=== PATIENT | female | born 1975 ===

== ENCOUNTER 2017-03-08 06:18 | Emergency (ER) | payer OTHER ==
[2017-03-08 06:18] VITALS: BMI 27.6
[2017-03-08 06:32] VITALS: BP 101/58; PULSE 65; RESP 16; TEMP 98.6; O2SAT 98
--- NOTE | 2017-03-08 07:15 | ED PDOC ---
HPI: Back Time Seen by Provider: 03/08/17 07:03 Chief Complaint (Nursing): Back Pain Chief Complaint (Provider): Back pain and vaginal bleeding History Per: Patient History/Exam Limitations: no limitations Onset/Duration Of Symptoms: Days (x 2 weeks) Current Symptoms Are (Timing): Still Present Additional Complaint(s): Angela is a 41-year-old female with no past medical history, who presents to the ED complaining of low back pain and abdominal cramping associated with vaginal bleeding, intermittently for 2 weeks. Home tests have been positive. LMP was January 22. PMD: Unknown Past Medical History Reviewed: Historical Data, Nursing Documentation, Vital Signs Vital Signs: Last Vital Signs Temp 98.6 F 03/08/17 06:29 Pulse 65 03/08/17 06:29 Resp 16 03/08/17 06:29 BP 101/58 L 03/08/17 06:29 Pulse Ox 98 03/08/17 06:29 - Medical History PMH: No Chronic Diseases - Surgical History Surgical History: - Family History Family History: States: Unknown Family Hx - Social History Current smoker - smoking cessation education provided: No Alcohol: None Drugs: Denies - Allergies Allergies/Adverse Reactions: Allergies Allergy/AdvReac Type Severity Reaction Status Date / Time No Known Allergies Allergy Verified 02/25/13 14:10 Review of Systems ROS Statement: Except As Marked, All Systems Reviewed And Found Negative Gastrointestinal: Positive for: Abdominal Pain (cramping) Genitourinary Female: Positive for: Vaginal Bleeding Musculoskeletal: Positive for: Back Pain (low) Physical Exam - Reviewed Nursing Documentation Reviewed: Yes Vital Signs Reviewed: Yes - Physical Exam Appears: Positive for: Non-toxic, No Acute Distress Head Exam: Positive for: ATRAUMATIC, NORMAL INSPECTION, NORMOCEPHALIC Skin: Positive for: Normal Color, Warm, Dry Eye Exam: Positive for: EOMI, Normal appearance, PERRL Neck: Positive for: Normal, Painless ROM, Supple Cardiovascular/Chest: Positive for: Regular Rate, Rhythm. Negative for: Murmur Respiratory: Positive for: Normal Breath Sounds. Negative for: Accessory Muscle Use, Respiratory Distress Gastrointestinal/Abdominal: Positive for: Normal Exam, Soft. Negative for: Tenderness Pelvic Exam: Positive for: Blood (Scant vaginal bleeding). Negative for: Tender Adnexa, Other (adnexal masses) Back: Positive for: Normal Inspection Extremity: Positive for: Normal ROM. Negative for: Pedal Edema, Deformity Neurologic/Psych: Positive for: Alert, Oriented - Laboratory Results Result Diagrams: 03/08/17 07:22 03/08/17 07:22 - ECG O2 Sat by Pulse Oximetry: 98 (RA) Pulse Ox Interpretation: Normal Medical Decision Making Medical Decision Making: Time: 07:09 Initial Plan: --CMP --Beta-HCG --CBC --ED urine test --ED urine dipstick --Blood type and screen --Pending US OB limited and OB Transvaginal Scribe Attestation: Documented by Tamera Car, acting as a scribe for Bradford Mcclure MD Provider Scribe Attestation: All medical record entries made by the Scribe were at my direction and personally dictated by me. I have reviewed the chart and agree that the record accurately reflects my personal performance of the history, physical exam, medical decision making, and the department course for this patient. I have also personally directed, reviewed, and agree with the discharge instructions and disposition. Disposition - Clinical Impression Clinical Impression: Threatened miscarriage - Patient ED Disposition Is Patient to be Admitted: No Counseled Patient/Family Regarding: Studies Performed, Diagnosis, Need For Followup, Rx Given - Disposition [facility] Disposition: Routine/Home Disposition Time: 11:41 Condition: FAIR Instructions: Threatened Miscarriage (ED) Forms: [employer] (Occitan) Print Language: TOGOLESE
[2017-03-08 07:32] LABS: BASO % 0.4 % (0.0-2.0); EOS # 0.1 K/uL (0.0-0.7); EOS % 1.3 % (0.0-4.0); HEMOGLOBIN 12.5 g/dL (12.0-16.0); LYMPH # 2.1 K/uL (1.0-4.3); LYMPH % 26.6 % (20.0-40.0); MEAN CELL VOLUME 88.9 fl (81.0-99.0); MEAN CORPUSCULAR HEMOGLOBIN 29.8 pg (27.0-31.0); MEAN CORPUSCULAR HGB CONC 33.5 g/dL (33.0-37.0); MEAN PLATELET VOLUME 9.3 fl (7.2-11.7); MONO # 0.8 K/uL (0.0-0.8); MONO % 10.1 % (0.0-10.0); NEUT # 4.9 K/uL (1.8-7.0); NEUT % 61.6 % (50.0-75.0); NRBC % 0.1 % (0.0-0.0); RBC 4.2 Mil/uL (3.80-5.20); RED CELL DISTRIBUTION WIDTH 13.8 % (11.5-14.5); WHITE BLOOD COUNT 7.9 K/uL (4.8-10.8)
[2017-03-08 07:40] LABS: ALB/GLOB RATIO 1.3 (1.0-2.1); ALT/SGPT 99 U/L (9-52); AST/SGOT 54 U/L (14-36); BLOOD UREA NITROGEN 10 mg/dl (7-17); CALCIUM 8.7 mg/dL (8.4-10.2); GFR AFRICAN-AMERICAN > 60; GFR NON-AFRICAN AMERICAN > 60
--- NOTE | 2017-03-08 11:42 | US ---
PROCEDURE: HISTORY: r/o ectopic COMPARISON: TECHNIQUE: FINDINGS: Intrauterine gestational sac measuring 1.8 cm corresponding to 6 weeks 2 days gestational age. pole and yolk sac identified. heart motion at 118 beats per minute. Heterogeneous endocervical canal. Left ovary not visualized. Right ovary contains 1.8 centimeter cyst IMPRESSION: As above.
== END 2017-03-08 11:55 | disposition home or self-care (01) ==
LOC: H.ER 06:18
DX: O20.0 Threatened abortion (principal); Z3A.01 Less than 8 weeks gestation of pregnancy

== ENCOUNTER 2017-10-19 06:48 | Inpatient (IN) | payer MEDICAID, SELFPAY ==
[2017-10-19] MEDS: Lactated Ringer's 1,000 ML IV SCH ×2 (07:00→08:00)
[2017-10-19 07:01] VITALS: BMI 28.9
[2017-10-19] MEDS ORDERED: Lactated Ringer's 1,000 ML IV SCH ×2 (07:15→22:15)
[2017-10-19] MEDS ORDERED: ceFAZolin IV 2 gm in Dextrose 2 GM/50 ML BAG IVPB ONE (07:30)
[2017-10-19] MEDS: Oxytocin 30 units/LR 500ML 30 U/500 ML BAG IV SCH ×9 (07:30→12:15)
[2017-10-19 07:33] LABS: BASO % 0.3 % (0.0-2.0); EOS # 0.1 K/uL (0.0-0.7); EOS % 1.1 % (0.0-4.0); HEMOGLOBIN 12.1 g/dL (12.0-16.0); LYMPH # 1.9 K/uL (1.0-4.3); LYMPH % 25.4 % (20.0-40.0); MEAN CELL VOLUME 86.5 fl (81.0-99.0); MEAN CORPUSCULAR HEMOGLOBIN 28.6 pg (27.0-31.0); MEAN CORPUSCULAR HGB CONC 33.1 g/dL (33.0-37.0); MONO # 0.8 K/uL (0.0-0.8); MONO % 10.2 % (0.0-10.0); NEUT # 4.8 K/uL (1.8-7.0); RBC 4.23 Mil/uL (3.80-5.20); RED CELL DISTRIBUTION WIDTH 18.5 % (11.5-14.5); WHITE BLOOD COUNT 7.7 K/uL (4.8-10.8)
[2017-10-19] MEDS ORDERED: Morphine 5 mg/10 ml preservative-free Inj(Duramorph) ONE (09:06)
[2017-10-19] MEDS ORDERED: ePHEDrine 50 mg/ml Inj ONE (09:06)
[2017-10-19] MEDS ORDERED: Phenylephrine 10 mg/ml Inj ONE (09:06)
[2017-10-19] MEDS ORDERED: Oxycodone/Acetaminophen 5/325 mg Tab PO PRN ×3 (11:20→14:35)
[2017-10-19] MEDS ORDERED: DiphenhydrAMINE 50 mg/ml Inj IVP PRN ×2 (11:33→14:35)
--- NOTE | 2017-10-19 11:59 | OBDS ---
DELIVERY PERSONNEL Delivery Doctor: Harman Tang MD Scrub Nurse: Joanna Rai OBT Boner Meat: Maritza Gabriel RN Anesthesiologist: MD Fidel Resident: MD Bryan (resident) MATERNAL INFORMATION Delivery Anesthesia: Epidural Medications in Delivery: Pitocin Estimated Blood Loss (ml): 800 Placenta Cultured: No Maternal Complications: None RN Comments: Atraumatic repeat delivery of a viable baby girl with lusty cry. reci eved and assigned 9,[address] Shah. Patient and infant tolerated delivery well. Skin to ski n initiated. Provider Comments: Surgeon: Dr. Madhuri Tang Paint Striping Machine Operator: Dr. Mino Tang Pre-op: Repeat Section, previous C-sectio x 1, tubal ligation Findings: LIve female in cephalic presentation, 6lbs 12 oz, 9/9 Surgery: Repeat LTCS, BTL Anesthesia: Dr. Parra, spinal EBL: 800mL UO:300mL Total input: 1500mL Complications: none Condition: stable Pathology: cord blood LABOR SUMMARY EDC: 10/25/2017 00:00 No. Babies in Womb: 1 Attempted: No Labor Anesthesia: spinal LABOR INFORMATION Reason for Induction: Not Applicable Oxytocin: N/A Group B Beta Strep: Negative Antibiotics # of Doses: 1 Antibiotics Time of Last Dose: 944 Steroids Given: None Reason Steroids Not Administered: Not Applicable Other Reason Not Administered: not required MEMBRANES Membranes Rupture Method: Artificial Rupture of Membranes: 10/19/2017 10:24 Length of Rupture (hrs): 0.02 Amniotic Fluid Color: Clear Amniotic Fluid Amount: Small Amniotic Fluid Odor: Normal STAGES OF LABOR Stage 3 hrs: 0 Stage 3 min: 1 CSECTION DELIVERY Primary Indication: Repeat Elective CSection Urgency: Elective CSection Incidence: Repeat Labor: N/A Elective: N/A CSection Incision: Lower Uterine Transverse Sterilization Procedure: [place] BABY A INFORMATION Infant Delivery Date/Time: 10/19/2017 10:25 Method of Delivery: Born in Route : No : N/A Forceps: N/A Vacuum Extraction: N/A Shoulder Dystocia : No SHOULDER DYSTOCIA BABY A Infant Delivery Date/Time: 10/19/2017 10:25 PRESENTATION/POSITION BABY A Presentation: Cephalic Cephalic Presentation: Vertex Vertex Position: Left Occipital Transverse Breech Presentation: N/A PLACENTA INFORMATION BABY A Placenta Delivery Time : 10/19/2017 10:26 Placenta Method of Delivery: Manual Removal Placenta Status: Delivered SCORES BABY A Heart Rate 1 min: >100 bpm Resp Effort 1 min: Good Cry Reflex Irritability 1 min: Cough or Sneeze or Pulls Away Muscle Tone 1 min: Active Motion Color 1 min: Body [place], Extremities Blue Resuscitation Effort 1 min: N/A SCORE 1 MIN: 9 Heart Rate 5 min: >100 bpm Resp Effort 5 min: Good Cry Reflex Irritability 5 min: Cough or Sneeze or Pulls Away Muscle Tone 5 min: Active Motion Color 5 min: Body [place], Extremities Blue Resuscitation Effort 5 min: N/A SCORE 5 MIN: 9 INFANT INFORMATION BABY A Gestational Age at Delivery: 39.0 Gestational Status: Term Infant Outcome : Liveborn Condition : Stable Infant Sex: Male IDENTIFICATION/MEDS BABY A ID Band Number: [id number] ID Band Location: Right Leg; Right Arm WEIGHT/LENGTH BABY A Birthweight (gms): 3060 Infant Weight (lb): 6 Infant Weight (oz): 12 CORD INFORMATION BABY A No. Cord Vessels: 3 Nuchal Cord : N/A Cord Blood Taken: No Suction: Mouth; Nose ASSESSMENT BABY A Infant Complications: None Physical Findings at Delivery: Within Normal Limits Respirations: Appears Normal Dietetic Technician/ALS Called : No Care By: Dr Shah Transferred To: Remains with Mother
[2017-10-19] MEDS ORDERED: Simethicone 80 mg Chewtab PO SCH (16:00)
[2017-10-19] MEDS: Simethicone 80 mg Chewtab PO SCH (21:36)
[2017-10-19] MEDS: Oxycodone/Acetaminophen 5/325 mg Tab PO PRN (21:41)
--- NOTE | 2017-10-20 00:57 | OP ---
PROCEDURE DATE: 10/19/2017 PREOPERATIVE DIAGNOSES: Previous section x1, term , and tubal ligation. POSTOPERATIVE DIAGNOSES: Previous section x1, term , and tubal ligation. PROCEDURE: Repeat low-transverse section and bilateral tubal ligation. SURGEON: Madhuri Tang MD CARDIOVASCULAR SONOGRAPHER: Dr. Mino Tang FINDINGS: Live female , cephalic presentation, clear fluid, 6 pounds 4 ounces, 9 and 9 Apgars, and grossly normal tubes, ovaries, placenta, and uterus. TYPE OF ANESTHESIA: Spinal. ANESTHESIA ADMINISTERED BY: Koby Parra MD ESTIMATED BLOOD LOSS: 800 mL. URINE OUTPUT: 300 mL. TOTAL FLUID INPUT: 1500 mL. COMPLICATIONS: None. CONDITION: Stable. PATHOLOGY SPECIMEN: Cord blood and bilateral segments of tubes. INDICATIONS: This is a 42-year-old G6, P5-0-0-5 at 39 weeks and one day with history of previous who presented to labor and delivery for repeat . The patient also desired tubal ligation and permanent sterilization. The patient was given risks and benefits of procedure including risk of bleeding, infection, damage to surrounding organs such as bowel, bladder, ureter, and uterus and risks of permanent sterilization and that she would not be able to have any more children. The patient verbalized understanding and signed all informed consent. DESCRIPTION OF PROCEDURE: The patient was taken to the OR. Ancef was given preoperatively and anesthesia placed bilaterally. The patient was prepped and draped in a normal sterile fashion in dorsal supine position with a leftward tilt. A Pfannenstiel skin incision was made with the scalpel to the previous incision and carried through the underlying layer of fascia with the Bovie. The fascia was incised in the midline. The incision was extended laterally with the Bovie. We used the Dionna clamps to tent up the inferior aspect of this incision, which we dissected off of the underlying pyramidalis muscles with the Bovie. In a similar fashion, we tented up the superior aspect of this incision, which we dissected off of the underlying rectus abdominis muscles with the Bovie. We tented up the midline with Allis clamps and dissected sharply with the scalpel. We dissected carefully superiorly and inferiorly with good visualization of all underlying organs. The bladder blade was inserted. The vesicouterine peritoneum was identified, grabbed with pickups, and dissected off of the lower uterine segment with the Metzenbaum scissors. The lower uterine segment was incised in a transverse fashion. The uterine cavity was entered. Bandage scissors and manually we are able to extend the incision. Clear fluid was noted. The was delivered in cephalic presentation atraumatically followed by shoulder and rest of the infant atraumatically. Cord was clamped and cut. Infant was handed off to the awaiting forensic science technician. Placenta was extracted manually. Cord blood was obtained. Uterus was removed and cleared off all clots and debris. Uterine incision was repaired with an 0-Vicryl stitch were not hemostatic were imbricated with another 0-Vicryl stitch. Overall, hysterotomy site appeared to be hemostatic. Our attention was then turned to the bilateral tubes where we performed a Cole procedure with Rowena and plain gut suture to successfully due to the bilateral tubal sterilization. The part of the ampulla was resected off successfully and sent for pathology. The lumen was cauterized with the Bovie on each side and appeared to be hemostatic. The uterus was returned to the abdomen and gutters were cleared of all clots. Again, the bilateral tubal ligation was inspected and appeared to be hemostatic and the hysterotomy site was hemostatic. The peritoneum was closed with 2-0 Monocryl and the muscle was reapproximated with the same stitch. The fascia was closed with an 0-Vicryl and subcutaneous fat was closed with plain gut suture. The skin was closed with 4-0 Monocryl. Sponge, lap, and needle counts were correct x4. The patient was taken to the recovery room in stable condition. There are no other complications. Madhuri Tang MD
[2017-10-20] MEDS: Simethicone 80 mg Chewtab PO SCH ×6 (03:52→22:24)
[2017-10-20 07:04] LABS: HEMOGLOBIN 10.2 g/dL (12.0-16.0); MEAN CELL VOLUME 88.1 fl (81.0-99.0); MEAN CORPUSCULAR HEMOGLOBIN 28.7 pg (27.0-31.0); MEAN CORPUSCULAR HGB CONC 32.6 g/dL (33.0-37.0); RBC 3.54 Mil/uL (3.80-5.20); RED CELL DISTRIBUTION WIDTH 19.1 % (11.5-14.5); WHITE BLOOD COUNT 11.5 K/uL (4.8-10.8)
--- NOTE | 2017-10-20 10:32 | OBPPN ---
Datetime: 10/20/2017 06:07 PP Pain Prov: Within normal limits PP Nausea Prov: Denies PP Flatus Prov: No PP BM Prov: No PP Heart Prov: Normal PP Lungs Prov: Normal PP Abdomen/Uterus Prov: Normal PP Lochia Prov: Normal PP CVA Tenderness Prov: Normal PP Extremities Prov: Normal PP C/S Incision Prov: Normal PP Impression Prov: Normal progression PP Plan Prov: Continue present management PP Progress Note Prov: 42 y/o F now , s/p repeat on 10/19/17. Pt reports feeling well . Dressing from surgical incision was removed, pt tolerated well. Pain around surgical incision and p cisco is well controlled with medications. Pt afebrile, tolerating PO liquid diet with NO acute event s overnight. Pt able to ambulate. Pt has reed in place, not passing gases and NO bowel movement yet. Pt with NO difficulties. Lochia described as same as menses. Pt denies headache, dizzi ness, CP, SOB, N/V or calf tenderness. All systems reviewed and negative except as above. O: PE: -Gen: A_O, resting comfortably on bed, NAD. -Lungs: CTAB, No W/R/R. -CV: RRR, S1 and S2 present. -ABD: soft, BS +, firm fundus below umbilicus. Incision clean and intact with NO induration, suppu ration or bleeding. No sterile strips or maurice. -EXT: No cyanosis, non-tender calves. A/P 42 y/o F on POD 1, stable, recovering well from . --D/C Reed catheter. --Advance to regular diet. --Continue with post- management. -- and ambulation encouraged. --Anticipated discharge 10/22/17. Case discussed with OB precision farming specialist. Dee [facility] this morning. Agree with PGY1 note VANDANA H/H 05/26 IP PP Procedures: None Vital Signs Provider PP: Reviewed
[2017-10-20] MEDS: Oxycodone/Acetaminophen 5/325 mg Tab PO PRN (20:10)
[2017-10-21] MEDS: Oxycodone/Acetaminophen 5/325 mg Tab PO PRN (00:24)
[2017-10-21] MEDS: Simethicone 80 mg Chewtab PO SCH ×4 (04:40→21:58)
--- NOTE | 2017-10-21 14:42 | OBPPN ---
Datetime: 10/21/2017 05:53 PP Pain Prov: Within normal limits PP Nausea Prov: Denies PP Flatus Prov: Yes PP BM Prov: No PP Heart Prov: Normal PP Lungs Prov: Normal PP Abdomen/Uterus Prov: Normal PP Lochia Prov: Normal PP CVA Tenderness Prov: Normal PP Extremities Prov: Normal PP C/S Incision Prov: Normal PP Progress Prov: Normal PP Impression Prov: Normal progression PP Plan Prov: Continue present management PP Progress Note Prov: 42 y/o F now , s/p repeat on 10/19/17. Pt had a fever around m idnight which resolved. Pt reported severe pelvic pain when fever, Percocet was given. Pt remained af ebrile after this episode. Pain is well-controlled at this moment. Pt tolerating PO-regular diet, has good appetite. Pt able to ambulate. Pt voiding with no issues, passing gases but NO bowel movement y et. Pt with NO difficulties. Lochia less than menses. Pt denies headache, dizziness, CP , SOB, N/V or calf tenderness. All systems reviewed and negative except as above. O: Temp 101.3 degF at midnight. PE: -Gen: A_O, resting comfortably on bed, NAD. -Lungs: CTAB, No W/R/R. -CV: RRR, S1 and S2 present. -ABD: soft, BS +, firm fundus below umbilicus. Incision clean, dry and intact with NO induration, suppuration or bleeding. -EXT: No cyanosis, non-tender calves. A/P 42 y/o F on POD 2, stable, recovering well from , stable and in good mood. --Continue with post- management. --Monitor Vital Signs. -- and ambulation encouraged. --Anticipated discharge 10/22/17. Case discussed with OB associate consulting engineer. Dee PGY-1 The patient was seen with the resident I agree with the note IP PP Procedures: None Vital Signs Provider PP: Reviewed
[2017-10-21] MEDS ORDERED: Lansinoh for Breast Feeding Mothers TP ONE (23:53)
[2017-10-22] MEDS: Simethicone 80 mg Chewtab PO SCH (05:41)
[2017-10-23 02:45] VITALS: BP 98/60; PULSE 98; RESP 20; TEMP 98.2; O2SAT 98
== END 2017-10-22 15:00 | disposition home or self-care (01) | DRG 766 ==
LOC: H.L&D 06:48 → H.OB/GYN 14:00
PROVIDERS: ADMIT Obstetrics & Gynecology; ATTEND Obstetrics & Gynecology
PROC: 10D00Z1 Extraction of Products of Conception, Low, Open Approach (ICD-10-PCS; principal; 2017-10-19)
PROC: 0UB70ZZ Excision of Bilateral Fallopian Tubes, Open Approach (ICD-10-PCS; 2017-10-19)
PROC: 4A1HXCZ Monitoring of Products of Conception, Cardiac Rate, External Approach (ICD-10-PCS; 2017-10-19)
DX: O34.211 Maternal care for low transverse scar from previous cesarean delivery (principal); Z37.0 Single live birth; Z3A.39 39 weeks gestation of pregnancy; Z30.2 Encounter for sterilization; O09.523 Supervision of elderly multigravida, third trimester